=== PATIENT | female | born 1960 | race Caucasian/White ===

== ENCOUNTER → 2018-01-03 13:02 | Outpatient (CLI) | payer MEDICAID ==
[2014-07-19 13:06] VITALS: BMI 32.6
--- NOTE | ~2018-01-03 | EC ---
PATIENT:PORFIRIO WHITESIDE DATE OF SERVICE: 01/03/18 SEX: F MEDICAL RECORD: [id number] DATE OF : 60 LOCATION:D[facility] AGE OF PATIENT: 57 ADMISSION DATE: 01/03/18 REFERRING PHYSICIAN: INTERPRETING PHYSICIAN: JOCY GARCIA MD ECHOCARDIOGRAM REPORT ECHO CHARGES 4 ECHO COMPLETE Date: 01/03 CLINICAL DIAGNOSIS: DYSPNEA/HTN/CAD ECHOCARDIOGRAPHIC MEASUREMENTS (adult normal given) AC root (d.<3.7cm) 2.9 cm LV Septum d (<1.2 cm> 1.6 cm Valve Excursion 1.8 cm LV Septum (systole) 2.4 cm Left Atria (s.<4.0cm> 4.1 cm LVPW d(<1.2cm) 1.5 cm RV (d.<2.3cm) 2.3 cm LVPW (sytole) 1.9 cm LV diastole(<5.6CM) 4.3 cm MV E-F(>70mm/sec) cm LV systole 1.9 cm LVOT Diameter 1.7 cm MV exc.(>10mm) cm Est.ejection fraction (50-75%) % DOPPLER: LVIT cm/sec A 50.0 cm/sec E 74.0 cm/sec LA cm/sec RVSP 25.0 mmHg LVOT 106 cm/sec AOP1/2T m/s Asc. Ao 131 cm/sec RVOT 67.0 cm/sec RA cm/sec PA 88.0 cm/sec AV Gradient Peak 6.9 mmHg AV Mean 3.6 mmHg AV Area 2.0 cm MV Gradient Peak 3.4 mmHg MV Mean 0.95 mmHg MV Area cm COMMENTS: Heavy Antiarmor Weapons Infantryman: Koby LAZAROOE Beauty Parlor Cleaner: Emily Garcia TAPE# PACS Pericardial Effusion N DATE OF SERVICE: PROCEDURE: Transthoracic echocardiogram. FINDINGS: 1. Left ventricle shows evidence of left ventricular hypertrophy that is moderate. Inflow characteristics has pseudonormalization. 2. The left atrium is mildly dilated. 3. The mitral valve has trace mitral regurgitation. 4. Tricuspid valve has trace tricuspid regurgitation. ECHOCARDIOGRAM REPORT [id number] PORFIRIO WHITESIDE 5. The right atrium and right ventricle are normal size, shape and function. 6. The pericardium is normal. CONCLUSIONS: The patient has evidence of hypertensive heart disease, preserved LV systolic function, and normal valvular function. TRANSINT:[id number] Voice Confirmation ID: [id number] DOCUMENT ID: [id number] JOCY GARCIA MD at 0719 CC: [id number] DICTATION DATE: 01/06/18 1057 FOREST FIRE PREVENTION SPECIALIST: 01/06/18 1305 DEP CLI 01/03/18 [address] [place] [address]
[~2018-01-03 13:02] MED LIST: COREG6.25 MG PO; FISH OIL 1,0001 CA1 PO; IBUPROFEN800 MG PO; KLOR-CON 1010 MEQ PO; LISINOPRIL10 MG PO; LOW DOSE ASPIRI81 M1 PO; MACROBID100 MG PO; NORVASC5 MG PO; PERCOCET 10/3251 TA1 PO; PLAVIX75 MG PO; PROPRANOLOL HCL60 M1 PO; PROPRANOLOL HCL80 MG PO
== END | disposition home or self-care (01) ==
LOC: D.ECHO 12-31 13:00
DX: R06.00 Dyspnea, unspecified (principal); I10 Essential (primary) hypertension; E78.5 Hyperlipidemia, unspecified; I25.10 Atherosclerotic heart disease of native coronary artery without angina pectoris

== ENCOUNTER → 2018-02-13 06:47 | Outpatient (CLI) | payer MEDICAID ==
[~2018-02-13] VITALS: Ht 165.1 cm; Wt 89.1 kg
--- NOTE | ~2018-02-13 | OP ---
PATIENT NAME: PORFIRIO WHITESIDE MEDICAL RECORD: [id number] :60 LOCATION:D.[facility] ADMISSION DATE: SURGEON: SORIN GARCIA MD DATE OF OPERATION: 02/13/2018 PROCEDURES: The patient brought in for left heart catheterization, LV gram, coronary angiogram. BUYER ASSISTANT: Sorin Garcia MD PROCEDURE IN DETAIL: The patient was brought into cardiac catheterization lab in stable condition. Both groins and the right wrist were sterilely prepped and draped. We initially attempted the right radial artery; however, we were unable to advance the wire. We then focused our attention gaining access into the right groin. We were able to place a 5-Romanian sheath into the right common femoral artery in a retrograde fashion using a modified Seldinger technique. We then took 5-Romanian diagnostic catheter, selectively engaged the left coronary artery, the right coronary artery, and the left ventricular cavity respectively for a complete left heart catheterization. FINDINGS: 1. Left main is normal. 2. The LAD is a small vessel in caliber, does have a 50% proximal stenosis. 3. The circumflex is a very large dominant vessel in distribution and size and is normal. 4. The RCA is a small nondominant vessel with a mid 40% stenosis. HEMODYNAMICS: Left ventricular ejection fraction of 65%. End-diastolic pressure is normal. No significant mitral regurgitation. No gradient across the aortic valve. IMPRESSION: [id number] single vessel coronary artery disease with preserved LV systolic function. RECOMMENDATIONS: Medical management. TRANSINT:[id number] Voice Confirmation ID: [id number] DOCUMENT ID: [id number] SORIN GARCIA MD at 1011 CC: [id number] DICTATION DATE: 02/13/18 0908 JEWELRY DESIGNER: 02/13/18 0948 DEP CLI 02/13/18 [place] [address]
--- NOTE | ~2018-02-13 | HEMODYNAMI ---
PATIENT:PORFIRIO WHITESIDE MEDICAL RECORD: [id number] : 60 LOCATION:[facility] ADMISSION DATE: 02/13/18 Generatedon:02/13/20189:07 Patient name: PORFIRIO WHITESIDE Patient #: [id number] SSN: : Date of study: 02/13/2018 Page: Of Hemodynamic Procedure Report Patient Data Patient Demographics Procedure consent was obtained First Name: PORFIRIO Gender: Female Last Name: STEVO : 1960 [facility] Initial: BLU Age: 57 year(s) Patient #: [id number] Race: Unknown Additional ID: [id number] Contact details Address: [address] [place] [address] State: [place] City: [place] Zip code: [address] Past Medical History Allergies: No known allergies Admission Admission Data Admission Date: 02/13/2018 Admission Time: 6:47 Admit Source: Other Lab Results Lab Result Date: 02/13/2018 Lab Result Time: 7:30 Biochemistry Name Units Result Min Max BUN mg/dl 26 --(----)-* 7 18 Creatinine mg/dl 1.1 --(--*-)-- 0.6 1.3 CBC Name Units Result Min Max Hematocrit % 39 *-(----)-- 42 54 Hemoglobin g/dl 13 -*(----)-- 13.5 17.5 Procedure Procedure Types Cath Procedure Diagnostic Procedure [facility] w/Coronaries Sedation Charges Moderate Sedation up to 15 minutes Procedure Description Procedure Date Procedure Date: 02/13/2018 Procedure Start Time: 8:44 Procedure End Time: 9:07 Procedure Staff Name Function Sorin Lal MD Performing Physician Moose Rogers RT Monitor Alex Cristobal RT Scrub Kishan Torres RN Nurse Procedure Data Cath Procedure Fluoroscopy Diagnostic fluoroscopy Total fluoroscopy Time: 2.6 time: 2.6 min min Diagnostic fluoroscopy Total fluoroscopy dose: dose: 199.5 mGy 199.5 mGy Contrast Material Contrast Material Type Amount (ml) Isovue 300 54 Entry Location Entry Primary Successful Side Size Upsize Upsize Entry Closure Succes sful Closure Location (Fr) 1 (Fr) 2 (Fr) Remarks Device Remarks Femoral Right 5 Fr Exoseal artery Estimated blood loss: 5 ml Diagnostic catheters Device Type Used For End Catheter Placement MULTIPACK JL 4.0 5Fr Procedure catheter MULTIPACK 3DRC 5Fr Procedure catheter Procedure Complications No complications Procedure Medications Medication Administration Route Dosage Oxygen etCO2 Nasal cannula 2 l/min Heparin Flush Bag added to field 2 bags (1000units/500ml NS) 0.9% NaCl I.V. 100 ml/hr Radial Cocktail added to field 1 syringe (Verapomil 2mg/Nitro 400mcg/Heparin 1500units) Fentanyl I.V. 50 mcg Versed I.V. 1 mg Fentanyl I.V. 50 mcg Versed I.V. 1 mg Hemodynamics Rest HGB: 13 (g/dl) Heart Rate: 72 (bpm) Pressure Samples Time Site Value (mmHg) Purpose Heart Use Rate(bpm) 9:01 LV 109/17,19 EDP 68 9:03 LV 114/7,23 EDP 68 9:03 AO 116/53(88) Pullback 67 9:03 LV 111/20,28 Pullback 67 Gradients Valve Time Site 1 Site 2 Mean SEP/DFP Peak To Heart Use (mmHg) (sec/min) Peak Rate (mmHg) (bpm) Aortic 9:03 LV AO 0 1 0 67 111/20,28 116/53(88) Calculations Valve P-P Mean Valve Index Valve Source Name Gradient Area Flow (cm2) Aortic 0 0 0 0 Snapshots Pre Cath Intra NCS Post Cath Vital Signs Time Heart Resp SPO2 etCO2 NIBP (mmHg) Rhythm Pain Sedation Rate (ipm) (%) (mmHg) Status Level (bpm) 8:30:12 69 17 100 20.2 134/110(128) NSR 0 (11) 10(A) , No pain 8:35:31 63 17 100 28.5 170/92(140) NSR 0 (11) 10(A) , No pain 8:39:47 66 17 94 33 116/74(92) NSR 0 (11) 10(A) , No pain 8:44:03 68 16 96 36 93/54(72) NSR 0 (11) 9(A) , No pain 8:48:23 64 16 97 38.3 93/59(73) NSR 0 (11) 9(A) , No pain 8:52:31 59 17 96 34.5 94/64(79) NSR 0 (11) 9(A) , No pain 8:56:39 63 16 96 36 98/63(78) NSR 0 (11) 9(A) , No pain 9:00:49 67 17 96 36.8 100/61(80) NSR 0 (11) 9(A) , No pain 9:04:58 65 17 98 29.2 107/65(84) NSR 0 (11) 9(A) , No pain 9:06:45 62 16 98 31.5 110/64(87) NSR 0 (11) 9(A) , No pain Medications Time Medication Route Dose Verified Delivered Reason Notes Eff ectiveness by by 8:32:06 Oxygen etCO2 2 l/min Sorin Kishan Per Nasal Hali Torres RN physician cannula 8:32:14 Heparin Flush added 2 bags Sorin Kishan used for Bag to Hali Torres RN procedure (1000units/500ml field PIERRE NS) 8:32:23 0.9% NaCl I.V. 100 Sorin Kishan Per ml/hr Hali Torres RN physician 8:32:35 Radial Cocktail added 1 Sorin Kishan used for (Verapomil to syringe Hali Torres grease maker head 2mg/Nitro field PIERRE 400mcg/Heparin 1500units) 8:40:19 Fentanyl I.V. 50 mcg Sorin Kishan for Hali Torres RN sedation 8:40:25 Versed I.V. 1 mg Sorin Kishan for Hali Torres RN sedation 8:46:02 Fentanyl I.V. 50 mcg Sorin Kishan for Hali Torres RN sedation 8:46:05 Versed I.V. 1 mg Sorin Kishan for Hali Torres RN sedation Procedure Log Time Note 8:10:17 Alex Cristobal RT(R) sent for patient. Start room use. 8:19:51 Informed consent obtained and on chart 8:19:55 Admit Source: Other 8:20:10 Diagnostic Cath status Elective 8:20:18 Time tracking: Regular hours (M-F 7:00 - 5:00) 8:20:22 Plan of Care:Hemodynamics will remain stable., Cardiac rhythm will remain stable., Comfort level will be maintained., Respiratory function will remain adequate., Patient/ family verbilizes understanding of procedure., Procedure tolerated without complication., Recovers from procedure without complications.. 8:20:30 H&P Date Dictated: 02/10/2018 Within 30 days and on chart., H&P Addendum completed by physician on day of procedure. (MUST COMPLETE FOR ALL OUTPATIENTS). 8:20:33 Patient NPO since Midnight. 8:20:40 Patient allergic to No known allergies 8::24 Lab Result : Creatinine 1.1 mg/dl 8::24 Lab Result : BUN 26 mg/dl 8::24 Lab Result : Hemoglobin 13 g/dl 8::24 Lab Result : Hematocrit 39 % 8::27 Lab results completed and on chart. 8:26:20 Patient received from Pre/Post Procedure Room to CCL 1 Alert and oriented. Tansferred to table in Supine position. 8:26:21 Warm blankets applied, and billy hugger turned on for patient comfort. 8:26:22 Correct patient and procedure confirmed by team. 8:26:22 ECG and BP/O2 sat monitors applied to patient. 8:29:13 Vital chart was started 8:32:06 Oxygen 2 l/min etCO2 Nasal cannula was administered by Kishan Torres RN; Per physician; 8:32:14 Heparin Flush Bag (1000units/500ml NS) 2 bags added to field was administered by Kishan Torres RN; used for procedure; 8:32:23 0.9% NaCl 100 ml/hr I.V. was administered by Kishan Torres RN; Per physician; 8:32:35 Radial Cocktail (Verapomil 2mg/Nitro 400mcg/Heparin 1500units) 1 syringe added to field was administered by Kishan Torres RN; used for procedure; 8:36:56 Baseline sample Acquired. 8:37:00 Rhythm: sinus rhythm 8:37:01 Full Disclosure recording started 8:37:03 Is the patient allergic to Iodine/contrast media? No. 8:37:04 Is patient on blood thinner?Yes 8:37:06 ACC The patient was administered the following blood thiners within the last 24 hours: ACCPlavix 8:37:08 Patient diabetic? No. 8:38:39 Previous problem with sedation/anesthesia? No ? 8:38:40 Snore? Yes 8:38:41 Sleep apnea? No 8:38:42 Deviated septum? No 8:38:42 Opens mouth fully? Yes 8:38:43 Sticks out tongue? Yes 8:38:45 Airway obstruction? No ? 8:38:47 Dentures? Yes out 8:38:49 Modified Kevin's test Ulnar < 7 seconds 8:38:51 Patient pain scale 0/10 ?. 8:38:55 IV patent on arrival in left wrist with 0.9% NaCl at [facility]. 8:38:59 Right Radial & Right Groin area was prepped with chlora-prep and draped in sterile fashion 8:39:00 Alarms reviewed by R. N. 8:39:00 Sharps counted by scrub and verified by R.N. 8:39:02 Use device set Radial Dx or PCI 8:39:03 ACIST Syringe (64485) opened to sterile field. 8:39:04 Medline Cath Pack ([id number]) opened to sterile field. 8:39:04 Bag Decanter (2002S) opened to sterile field. 8:39:05 ACIST Hand Control (97528) opened to sterile field. 8:39:05 ACIST Manifold (59425) opened to sterile field. 8:39:06 Tegaderm 4 x 4 (1626W) opened to sterile field. 8:39:06 MBrace Wrist Support ([id number]) opened to sterile field. 8:39:08 SHEATH 6Fr Prelude Radial ([id number]) opened to sterile field. 8:39:08 DIAGNOSTIC WIRE .035 260cm J wire (329194) opened to sterile field. 8:39:14 Pre-procedure instructions explained to patient. 8:39:14 Pre-op teaching completed and patient verbalized understanding. 8:39:16 Family in waiting room. 8:39:19 Physician arrived 8:39:19 --------ALL STOP TIME OUT------ 8:39:20 Final Timeout: patient, procedure, and site verified with staff and physician. All members of the team are in agreement. 8:39:21 Right Radial & Right Groin site verified by team. 8:39:23 Physical assessment completed. ASA score P 2 - A patient with mild systemic disease as per Sorin Lal MD. 8:39:25 Sedation plan: IV Moderate Sedation Medication:Versed, Fentanyl 8:40:19 Fentanyl 50 mcg I.V. was administered by Kishan Torres RN; for sedation; 8:40:25 Versed 1 mg I.V. was administered by Kishan Torres RN; for sedation; 8:43:40 Zero performed for pressure channel P1 8:43:45 Zero performed for pressure channel P1 8:43:48 Zero performed for pressure channel P1 8:43:54 Zero performed for pressure channel P1 8:43:56 Zero performed for pressure channel P1 8:44:00 Zero performed for pressure channel P1 8:44:02 Zero performed for pressure channel P1 8:44:09 Zero performed for pressure channel P1 8:44:11 Zero performed for pressure channel P1 8:44:16 Zero performed for pressure channel P1 8:44:22 Zero performed for pressure channel P1 8:44:25 Zero performed for pressure channel P1 8:44:33 Procedure started. 8:44:38 Local anesthetic to right radial artery with Lidocaine 2% by Sorin Lal MD.INITIAL ACCESS ONLY 8:46:02 Fentanyl 50 mcg I.V. was administered by Kishan Torres RN; for sedation; 8:46:05 Versed 1 mg I.V. was administered by Kishan Torres RN; for sedation; 8:50:49 SHEATH Prelude 5Fr 0.035 ([id number]-3H-[id number]) opened to sterile field. 8:50:55 MICROPUNCTURE 4FR Cook ([id number]) opened to sterile field. 8:52:11 Use device set Multipack Set 8:52:13 DIAGNOSTIC Multipack 5Fr catheter set ([id number]) opened to sterile field. 8:52:21 Local anesthetic to right femoral artery with Lidocaine 2% by Sorin Lal MD.ADDITIONAL ACCESS 8:53:54 Access obtained with 4Fr micropunture. 8:54:37 A 5 Fr sheath was inserted into the Right Femoral artery 8:55:28 A MULTIPACK JL 4.0 5Fr catheter was advanced over the wire and used for Procedure. 8:56:55 LCA angiography performed. 8:59:47 Catheter exchanged over wire. 8:59:53 A MULTIPACK 3DRC 5Fr catheter was advanced over the wire and used for Procedure. 9:01:23 RCA angiography performed. 9:01:37 Catheter exchanged over wire. 9:03:23 LV gram done using ALBA 9:03:27 Injector settings: Ml/sec: 8, Volume: 12, 9:03:36 LV hemodynamics recorded. 9:03:51 EF : 55 % 9:04:38 Catheter removed. 9:04:47 EXOSEAL 5Fr (EX500) opened to sterile field. 9:04:55 Sheath removed intact; hemostasis achieved with Exoseal to the Right Femoral artery. 9:04:57 Procedure ended.(Physican Out) 9:05:44 Fluoroscopy time 02.60 minutes. 9:05:50 Fluoroscopy dose: 199.5 mGy 9:05:50 Flurop Dose total: 199.5 9:05:54 Contrast amount:Isovue 300 54ml. 9:06:00 Sharps counted by scrub and verified by R.N. 9:06:02 Insertion/operative site no bleeding no hematoma. 9:06:05 Post-op/insertion site Right Femoral artery dressed using a 4 x 4 and Tegaderm. 9:06:08 Post-op/insertion site Right Radial artery dressed using a Bandaid. 9:06:12 Post right femoral artery:stable, soft, clean and dry 9:06:16 Post right radial artery:stable, soft, clean and dry 9:06:18 Post Procedure Pulses reassessed and unchanged 9:06:21 Post-procedure physical assessment completed. ASA score P 2 - A patient with mild systemic disease as per Sorin Lal MD. 9:06:23 Post procedure rhythm: unchanged. 9:06:32 Estimated blood loss: 5 ml 9:06:33 Post procedure instruction explained to patient.Patient verbalizes understanding. 9:06:33 Patient needs reinforcement of post procedure teaching. 9:06:48 Procedure type changed to Cath procedure, Diagnostic procedure, LHC, LHC w/Coronaries, Sedation Charges, Moderate Sedation up to 15 minutes 9:07:04 Procedure and supply charges have been captured, reviewed, submitted and are correct. 9:07:06 Procedure Complication : No complications 9:07:08 Vital chart was stopped 9:07:08 See physician's report for complete and final results. 9:07:10 Report given to Pre/Post Procedure Room. 9:07:13 Patient transfered to Pre/Post Procedure Room with Stretcher. 9:07:18 Procedure ended. 9:07:18 Full Disclosure recording stopped 9:07:23 End room use (Document Last) Device Usage Item Name Manufacture Quantity Catalog Number Hospital Part Current M inimal Lot# / Charge Number Stock Stock Serial# Code ACIST Syringe Acist 1 65225 [id number] 172186 134049 2 0 (30660) Medical [employer] Inc Medline Cath Cardinal 1 [id number] 258587 71818 538752 5 Pack Health ([id number]) Bag Decanter Microtek 1 2001S 394927 83967 887649 5 (2001S) Medical Inc. ACIST Hand Acist 1 30354 578503 874971 654227 5 Control (08443) [employer] Inc ACIST Manifold Acist 1 26962 314614 859161 545845 5 (20773) [employer] Systems Inc Tegaderm 4 x 4 3M 1 1626W 499818 010259 305517 5 (1626W) MBrace Wrist Advanced 1 [id number] 611291 15547 669568 5 Support Vascular ([id number]) Dynamics SHEATH 6Fr Merit 1 [id number] 536126 776440 632598 5 Prelude Radial Medical ([id number]) DIAGNOSTIC WIRE St Yobani 1 997042 931175 622320 647706 3 0 .035 260cm J wire (441080) SHEATH Prelude Merit 1 [id number] 156473 095537 003691 5 5Fr 0.035 Medical ([id number]-[id number]) MICROPUNCTURE Cook Medical 1 [id number] 039215 983304 470097 5 4FR Cook ([id number]) DIAGNOSTIC Cardinal 1 QK3670 610985 51846 365464 3 0 Multipack 5Fr Health catheter set ([id number]) MULTIPACK JL Cardinal 1 [id number] 5 4.0 5Fr Health catheter MULTIPACK 3DRC Cardinal 1 [id number] 5 5Fr catheter Health EXOSEAL 5Fr Cardinal 1 EX500 596030 535334 540615 1 0 (EX500) Health Signature Audit Dowell Stage Time Signature Unsigned Intra-Procedure 02/13/2018 Moose Rogers 9:07:41 AM RT(R) Signatures Monitor : Moose Rogers RT Signature : Date : Time : [facility] [address] [place] [address]
[2018-02-13 07:45] VITALS: BP 168/92; Ht 165.1 cm; Wt 89.1 kg
[2018-02-13 07:56] LABS: BASOPHILS 0.8 % (0-2); EOSINOPHILS 2.4 % (0-7); IMMATURE GRANULOCYTES 0.5 % (0-5); MCH 27.9 pg (26.0-34.0); MCHC 33.3 g/dL (31.0-37.0); MCV 83.7 fL (80.0-100.0); MEAN PLATELET VOLUME 10.7 fL (7.4-10.4); MONOCYTES 9.1 % (2-11); NEUTROPHILS 51.2 % (40-80); PLATELET COUNT 222 10x3/uL (130-400); RBC 4.66 10x6/uL (4.00-5.40); RDW 13.8 % (11.5-14.5); WBC 6.6 10x3/uL (4.8-10.8)
[2018-02-13 08:15] LABS: ANION GAP 12.6 mmol/L (8-16); CALCIUM 8.5 mg/dL (8.5-10.1); CARBON DIOXIDE 25.7 mmol/L (21.0-32.0); CREATININE - SERUM 1.1 mg/dL (0.6-1.3); POTASSIUM - SERUM 4.3 mmol/L (3.5-5.1)
[2018-02-13 08:26] LABS: HCG SERUM NEGATIVE (NEGATIVE)
== END | disposition home or self-care (01) ==
LOC: D.CATH 06:47
PROVIDERS: Internal Medicine Cardiovascular Disease
DX: I25.119 Atherosclerotic heart disease of native coronary artery with unspecified angina pectoris (principal); Z01.812 Encounter for preprocedural laboratory examination